=== PATIENT | male | born 1990 | race Two or more races ===

== ENCOUNTER 2021-06-16 13:21 | Emergency (ER) | payer OTHER ==
[~2021-06-16] VITALS: Ht 172.7 cm; Wt 59.0 kg
[2021-06-16 14:26] VITALS: BP 146/82
[2021-06-16] MEDS ORDERED: TETANUS-DIPTH-ACEL PERTUSSIS 0.5ML SYR Tdap IM ONE (15:30)
== END 2021-06-16 16:10 | disposition home or self-care (01) ==
LOC: ER 13:21
DX: S01.111A Laceration without foreign body of right eyelid and periocular area, initial encounter (principal); W26.8XXA Contact with other sharp object(s), not elsewhere classified, initial encounter; Y93.89 Activity, other specified; Y92.89 Other specified places as the place of occurrence of the external cause; Y99.8 Other external cause status
CPT/HCPCS: 12011; 90471; 90715